=== PATIENT | female | born 1970 | race Caucasian/White ===

== ENCOUNTER → 2017-04-19 | Outpatient (CLI) | payer BC ==
--- NOTE | 2017-04-19 12:02 | US ---
EXAMINATION TYPE: US abdomen complete DATE OF EXAM: 04/19/2017 COMPARISON: NONE CLINICAL HISTORY: 46-year-old female Right Upper Quad Abdominal PainR10.11. RUQ and lateral rib pain x 2 weeks after meals; prior renal stones per patient TECHNIQUE: Multiple sonographic images of the abdomen are obtained. FINDINGS: Liver Length: 14.2 cm Gallbladder Wall: 0.2 cm CBD: 0.2 cm Spleen: 6.1 cm Right Kidney: 9.3 x 5.1 x 3.3 cm Left Kidney: 9.7 x 3.7 x 4.5 cm Pancreas: wnl Liver: Normal homogeneous echotexture without focal lesion. Gallbladder: No abnormal gallbladder distention, wall thickening, pericholecystic fluid, or shadowin g calculi. Evidence for sonographic Garner's sign: No CBD: wnl Spleen: Small in size Right Kidney: No hydronephrosis Left Kidney: No hydronephrosis Upper IVC: wnl Abd Aorta: size is wnl; intimal thickening is noted posterior wall distally IMPRESSION: Somewhat small spleen measuring 6.1 cm. Otherwise, unremarkable sonographic examination of the abdome n.
== END | disposition home or self-care (01) ==
LOC: RADUSWWP 09:16
PROVIDERS: ATTEND Internal Medicine
DX: R10.11 Right upper quadrant pain (principal)
CPT/HCPCS: 76700

== ENCOUNTER → 2017-07-01 | Outpatient (CLI) | payer BC ==
--- NOTE | 2017-07-01 09:50 | US ---
EXAMINATION TYPE: US pelvis complete transvag DATE OF EXAM: 07/01/2017 COMPARISON: NONE CLINICAL HISTORY: R10.2 Pelvic pain. vaginal swelling after intercourse, tubalectomy due to infection 20+ years ago, TECHNIQUE: TA/TV Date of LMP: 3 years ago EXAM MEASUREMENTS: Uterus: 5.6 x 2.8 x 2.0 cm Endometrial Stripe: 0.3 cm Right Ovary: 1.5 x 1.1 x 1.1 cm Left Ovary: 1.0 x 0.8 x 0.8 cm 1. Uterus: Anteverted wnl 2. Endometrium: wnl 3. Right Ovary: wnl 4. Left Ovary: wnl 5. Bilateral Adnexa: wnl 6. Posterior cul-de-sac: wnl IMPRESSION: No distinct abnormality appreciated
== END ==
LOC: RADUSWWP 09:05
PROVIDERS: ATTEND Internal Medicine
DX: R10.2 Pelvic and perineal pain (principal)
CPT/HCPCS: 76830; 76856

== ENCOUNTER → 2018-02-22 | Outpatient (CLI) | payer BC ==
--- NOTE | 2018-02-22 14:38 | CT ---
EXAMINATION TYPE: CT abdomen pelvis wo con DATE OF EXAM: 02/22/2018 HISTORY: Right lower quadrant pain. CT DLP: 596 mGycm. Automated Exposure Control for Dose Reduction was Utilized. TECHNIQUE: CT scan of the abdomen and pelvis is performed without oral or IV contrast. COMPARISON: NONE FINDINGS: Within the limitations of a non-contrast study, the following observations are made. LUNG BASES: No significant abnormality is appreciated. LIVER/GB: No significant abnormality is appreciated. PANCREAS: No significant abnormality is seen. SPLEEN: No significant abnormality is seen. ADRENALS: No significant abnormality is seen. KIDNEYS: No renal stones or hydronephrosis is evident bilaterally. BOWEL: Evaluation bowel is suboptimal secondary to lack of enteric contrast. No suspicious small or l arge bowel dilatation is seen. And is felt within normal limits from base of cecum without surroundin g inflammatory change. GENITAL ORGANS: No gross abnormality seen. LYMPH NODES: No greater than 1cm abdominal or pelvic lymph nodes are appreciated. OSSEOUS STRUCTURES: No significant abnormality is seen. OTHER: Mild to moderate calcified plaque of aorta extends into branch vessels. IMPRESSION: No renal stones or hydronephrosis is seen bilaterally. No CT evidence for acute appendici tis.
== END | disposition home or self-care (01) ==
LOC: RADCTMAIN 13:15
PROVIDERS: ATTEND Internal Medicine
DX: R10.31 Right lower quadrant pain (principal)
CPT/HCPCS: 74176

== ENCOUNTER 2019-07-05 13:50 | Emergency (ER) | payer BC ==
[2019-07-05 13:56] VITALS: BP 112/70; PULSE 147; TEMP 102.7
[2019-07-05 14:18] VITALS: RESP 18
--- NOTE | 2019-07-05 14:23 | ED ---
General Adult HPI - General Chief complaint: Upper Respiratory Infection Stated complaint: Cough Source: patient Mode of arrival: ambulatory Limitations: no limitations - History of Present Illness Initial comments: Patient is a 49-year-old female presenting to emergency Department with chief complaint fever and body aches. Patient reports today she developed generalized body aches along with a fever and nonproductive cough. Patient reports one episode of posttussive emesis. She also reports a sore throat bilateral mild otalgia and sinus congestion. She reports a mild headache but states that has been coming and going. Reports taking [id number]-[id number] analgesia with some improvement. Denies getting a flu shot this year. She was exposed to her who is also has similar symptoms. Denies shortness of breath or chest pain. - Related Data Previous Rx's Medication Instructions Recorded Oseltamivir [Tamiflu] 75 mg PO Q12HR #10 cap 07/05/19 methylPREDNISolone [Medrol Dose 4 mg PO DIRECTED #1 pack 07/05/19 Pack] Allergies Allergy/AdvReac Type Severity Reaction Status Date / Time codeine AdvReac Unknown Verified 07/05/19 13:56 Review of Systems ROS Statement: Those systems with pertinent positive or pertinent negative responses have been documented in the HPI. ROS Other: All systems not noted in ROS Statement are negative. Past Medical History Past Medical History: No Reported History History of Any Multi-Drug Resistant Organisms: None Reported Past Surgical History: Breast Surgery, Section, Tubal Ligation Additional Past Surgical History / Comment(s): breast cyst Past Psychological History: Anxiety, Depression Smoking Status: Current every day smoker Past Alcohol Use History: Occasional Past Drug Use History: None Reported General Exam Limitations: no limitations General appearance: alert, in no apparent distress Head exam: Present: atraumatic, normocephalic, normal inspection Eye exam: Present: normal appearance, PERRL, EOMI Pupils: Present: normal accommodation ENT exam: Present: normal exam, normal oropharynx (Uvula midline. No tonsillar erythema or exudates.), mucous membranes moist, TM's normal bilaterally, normal external ear exam Neck exam: Present: normal inspection, full ROM Respiratory exam: Present: normal lung sounds bilaterally. Absent: wheezes Cardiovascular Exam: Present: regular rate, normal rhythm, normal heart sounds Extremities exam: Present: normal inspection, full ROM Back exam: Present: normal inspection, full ROM Neurological exam: Present: alert, oriented X3 Psychiatric exam: Present: normal affect, normal mood Skin exam: Present: warm, dry, intact, normal color Course Vital Signs 07/05/19 07/05/19 13:52 13:56 Temperature 102.7 F H Pulse Rate 147 H Respiratory 20 18 Rate Blood Pressure 112/70 O2 Sat by Pulse 91 L Oximetry Medical Decision Making - Medical Decision Making Patient is a 49-year-old female presenting to the emergency department with a chief complaint of flulike symptoms. She was exposed to her who had similar type symptoms. On exam she does have some rhinorrhea with no sinus tenderness. No wheezing but she does have a cough. She is flu A positive. Patient advised drink lots of fluids. Patient given Tamiflu and a Medrol Dosepak. Patient advised to rest. Strict return parameters were thoroughly discussed the patient was understanding and agreeable. Case discussed with physician. - Lab Data Lab Results 07/05/19 Range/Units 14:20 Influenza Type A RNA Detected H (Not Detectd) Influenza Type B (PCR) Not Detected (Not Detectd) Disposition Clinical Impression: Influenza Disposition: HOME SELF-CARE Condition: Stable Instructions (If sedation given, give patient instructions): Influenza (DC) Additional Instructions: Please rest. Take prescribed medication as directed. Drink lots of liquids. Please return to emergency department if symptoms worsen. Prescriptions: methylPREDNISolone [Medrol Dose Pack] 4 mg PO DIRECTED #1 pack Oseltamivir [Tamiflu] 75 mg PO Q12HR #10 cap Is patient prescribed a controlled substance at d/c from ED?: No Referrals: Lady Grimaldo MD [Primary Care Provider] - 1-2 days Time of Disposition: 15:48
== END 2019-07-05 16:06 | disposition home or self-care (01) ==
LOC: EC 13:50
DX: J11.1 Influenza due to unidentified influenza virus with other respiratory manifestations (principal); F17.200 Nicotine dependence, unspecified, uncomplicated; Z88.5 Allergy status to narcotic agent
CPT/HCPCS: 87502; 99283

== ENCOUNTER → 2022-08-11 | Outpatient (CLI) | payer BC ==
--- NOTE | 2022-08-11 11:41 | CT ---
EXAMINATION TYPE: CT sinus wo con DATE OF EXAM: 08/11/2022 COMPARISON: None HISTORY: chronic sinus congestion CT DLP: 423 mGycm. Automated Exposure Control for Dose Reduction was Utilized. TECHNIQUE: CT scan of the sinuses is performed without contrast, axial images are obtained, coronal r eformatted images are also reviewed. FINDINGS: The paranasal sinuses including the frontal, ethmoid, sphenoid, and maxillary sinuses bila terally are well-aerated without abnormal opacification. The ostiomeatal complex is patent bilateral ly on the coronal images. Visualized portion of mastoid air cells show no abnormal opacification. The globes are intact bilate rally. Dental artifact limits portions of the exam. IMPRESSION: The sinuses are clear and the ostiomeatal complex is patent bilaterally.
== END | disposition home or self-care (01) ==
LOC: RADCTMAIN 11:05
PROVIDERS: ATTEND Otolaryngology
DX: J32.9 Chronic sinusitis, unspecified (principal)
CPT/HCPCS: 70486

== ENCOUNTER → 2024-09-22 | Outpatient (CLI) | payer BC ==
--- NOTE | 2024-09-22 11:31 | CT ---
EXAMINATION TYPE: CT soft tissue neck w con DATE OF EXAM: 09/22/2024 10:41 AM COMPARISON: None. CLINICAL INDICATION: Female, 54 years old with history of R22.1 swelling/mass/lump in neck; TECHNIQUE: Standard enhanced CT of the neck. Axial sections with coronal and sagittal reformats were obtained. Contrast used:100 ml mL of Isovue 300 with IV Contrast, (None if empty) Oral contrast used: (None if empty) CT DLP: 260 mGycm, Automated exposure control for dose reduction was used. FINDINGS: Brain: Visualized portions are grossly unremarkable. Orbits: Unremarkable Sinuses: Grossly unremarkable. Spaces of the neck: Clear and symmetric. No palpable marker was placed to identify the specific locat ion of abnormality. Musculoskeletal: No acute osseous pathology. Lymph nodes: Multiple nonenlarged lymph nodes are seen along both anterior chains of the neck. Vascular structures: Visualized major arteries are patent without evidence of aneurysm. Thoracic Inlet/airway: Airway is patent. The lung apices are clear. Soft tissues/Thyroid: Thyroid and remainder of the soft tissues are unremarkable. Other: none. IMPRESSION: No palpable marker was placed to identify the specific location of abnormality. No lymphadenopathy ma ss or organizing fluid collection identified. [facility], , 09/22/2024 11:29 AM
== END | disposition home or self-care (01) ==
LOC: RADCTMAIN 09:47
PROVIDERS: ATTEND Otolaryngology
DX: R13.10 Dysphagia, unspecified (principal); R22.1 Localized swelling, mass and lump, neck
CPT/HCPCS: 70491; Q9967